=== PATIENT | female | born 1965 | race Caucasian/White ===

== ENCOUNTER 2019-12-13 09:37 | Outpatient (CLI) | payer BC, SELFPAY ==
--- NOTE | ~2019-12-13 | MM_ITS ---
EXAMINATION: MM screening azul BI w logan HISTORY: Screening mammogram TECHNIQUE: Craniocaudal and mediolateral oblique 3-D tomosynthesis images were obtained and synthetic 2-D images were generated. Bilateral rotated lateral cc views. ......CAD analysis was submitted and interpreted. COMPARISON: 04/14/2016, 03/25/2012 bilateral digital screening mammogram examinations BREAST PARENCHYMAL COMPOSITION: There are scattered areas of fibroglandular density. FINDINGS: Stable mild fibroglandular asymmetry. Occasional benign calcifications. There is no evidenc e of suspicious mass, calcification, or architectural distortion to suggest malignancy in either [address] There has been no suspicious interval change. IMPRESSION: 1. No mammographic evidence of malignancy. 2. Recommend routine screening mammography in one year. BI-RADS Category 2: Benign finding(s). Reviewed, dictated and finalized at location A.
== END 2019-12-13 09:38 | disposition home or self-care (01) ==
LOC: ANHIMG 09:41
PROVIDERS: PCP Family Medicine
DX: Z12.31 Encounter for screening mammogram for malignant neoplasm of breast (principal)
CPT/HCPCS: 77063; 77067

== ENCOUNTER 2020-04-20 09:56 | Outpatient (CLI) | payer BC, SELFPAY ==
[2020-04-20 10:13] LABS: Basophils Percent Auto 0.4 % (0.2-1.2); Eosinophils Absolute Auto 0.1 K/mm3 (0-0.3); Eosinophils Percent Auto 1.6 % (0-4.4); Hemoglobin 14.1 g/dL (12.0-15.0); Immature Granulocyte Absolute 0.01 K/mm3 (0.00-0.031); Immature Granulocyte Percent A 0.2 % (0-0.5); Lymphocytes Percent Auto 47.2 % (18.3-44.2); Mean Corpuscular HGB Conc 34.4 g/dl (32-36); Mean Corpuscular Hemoglobin 30.5 pg (26-34); Mean Corpuscular Volume 88.6 fl (80-100); Mean Platelet Volume 10.3 fl (7.4-10.4); Monocytes Absolute Auto 0.2 K/mm3 (0.1-0.6); Monocytes Percent Auto 4.3 % (2.6-8.5); Neutrophils Absolute Auto 2.4 K/mm3 (1.3-6.7); Neutrophils Percent Auto 46.3 % (45.5-73.1); Platelet Count Result 238 k/mm3 (150-375); Red Blood Count 4.63 M/mm3 (4.2-5.4); Red Cell Distribution Width 11.9 % (11.5-14.5); White Blood Count 5.1 K/mm3 (4.5-10.0)
[2020-04-20 10:16] LABS: Add Urine Microscopic? YES; Appearance Urine Clear (Clear); Bacteria Urine Trace /hpf; Bilirubin Urine Negative (Negative); Blood Urine Negative (Negative); Color Urine Yellow (Yellow); Glucose Urine UA Negative (Negative); Ketones Urine Negative (Negative); Leukocyte Esterase Ur Trace LEU/UL (NEGATIVE); Mucus Urine Rare /lpf; Nitrate Urine Negative (Negative); Protein Urine Negative (Negative); Specific Grav Ur 1.014 (1.001-1.035); Squamous Epithelial Cell Urine Occasional /hpf (Few); Urobilinogen Urine Negative mg/dL (<2.0); WBC Urine 0-3 /hpf (0-3)
[2020-04-20 10:28] LABS: Alanine Aminotransferase 33 U/L (4-35); Albumin Level 4.2 g/dL (3.5-5.1); Alkaline Phosphatase 92 U/L (38-126); Anion Gap 7 mmol/L (8-16); Aspartate Amino Transferase 24 U/L (14-36); Bilirubin,Total 0.6 mg/dL (0.2-1.3); Blood Urea Nitrogen 15 mg/dL (7-17); Calcium 9.2 mg/dL (8.4-10.2); Carbon Dioxide 28 mmol/L (22-30); Chloride 101 mmol/L (98-107); Cholesterol 244 mg/dL (0-200); Estimated Glomerular Filt Rate > 60; Glucose 132 mg/dL (65-105); HDL Direct 60 mg/dL; Potassium 3.9 mmol/L (3.4-5.0); Sodium 136 mmol/L (137-145); Triglycerides 140 mg/dL (<150)
[2020-04-20 10:40] LABS: LDL Cholesterol Direct 137 mg/dL
[2020-04-20 10:50] LABS: Hemoglobin A1C 5.7 % (<5.7)
[2020-04-22 18:11] LABS: Hepatitis C RNA, Quant PCR <15 IU/mL
== END 2020-04-20 09:57 | disposition home or self-care (01) ==
PROVIDERS: PCP Family Medicine; Visit Provider Physician Assistant
DX: R76.8 Other specified abnormal immunological findings in serum (principal); R42 Dizziness and giddiness; K76.0 Fatty (change of) liver, not elsewhere classified; R73.01 Impaired fasting glucose; M85.89 Other specified disorders of bone density and structure, multiple sites
CPT/HCPCS: 36415; 80053; 80061; 81001; 83036; 84443; 85025; 87086; 87088; 87522

== ENCOUNTER → 2020-05-15 00:17 | Outpatient (CLI) | payer BC, SELFPAY ==
[2020-05-15 21:18] LABS: SARS-CoV-2 RNA PCR Negative
== END ==
PROVIDERS: PCP Family Medicine; Visit Provider Internal Medicine Gastroenterology
DX: Z01.812 Encounter for preprocedural laboratory examination (principal); Z20.822 Contact with and (suspected) exposure to COVID-19
CPT/HCPCS: C9803; U0003; U0005

== ENCOUNTER 2020-05-18 02:08 | Day surgery (SDC) | payer BC, SELFPAY ==
[2020-05-08 11:06] VITALS: BMI 29.3
[2020-05-18 07:11] VITALS: BP 118/86; PULSE 77; RESP 18; TEMP 36; O2SAT 100
[2020-05-18] MEDS: LACTATED RINGERS 1,000 ML 150 ML IV CONT (07:25)
[2020-05-18 07:27] LABS: Glucose Point of Care 129 (65-105)
[2020-05-18] MEDS: ONDANSETRON INJ 4 MG/2 ML VIAL IV PUSH (08:28)
--- NOTE | 2020-05-18 08:32 | WPDANESEPPF ---
Anes - Initial Pre Proc Eval Procedure: Operation Date: 05/18/20 08:30 Proposed Procedures p Screening Colonoscopy - Suhail Ny MD Date/Time: 05/18/20 08:32 Surgeon: Suhail Ny MD Pre Op Diagnosis: neoplasm screening Patient Data Age: 54 Gender: F Height: 5 ft 5 in Weight: 76.1 kg Last Vital Signs Temp 36.0 C L 05/18/20 07:11 Pulse 77 05/18/20 07:11 Resp 18 05/18/20 07:11 BP 118/86 05/18/20 07:11 Pulse Ox 100 05/18/20 07:11 Allergies Allergy/AdvReac Type Severity Reaction Status Date / Time No Known Allergies Allergy Verified 05/18/20 07:10 Home Medications Medication Instructions Recorded Confirmed Type metformin 500 mg tablet 500 mg PO DAILY 04/06/19 05/18/20 History hydrochlorothiazide 12.5 mg tablet 12.5 mg PO DAILY #90 tablet 01/16/20 05/18/20 Rx venlafaxine 150 mg 150 mg PO DAILY #30 cap 02/15/20 05/18/20 Rx capsule,extended release 24 hr potassium chloride 10 mEq See Rx Instructions .ROUTE 04/16/20 05/18/20 Rx capsule,extended release .COMPLEX #90 cap sodium,potassium,mag sulfates 17.5 See Rx Instructions PO .COMPLEX 05/07/20 05/18/20 Rx gram-3.13 gram-1.6 gram oral soln #354 ml Laboratory Tests 05/18/20 07:24 POC Capillary Glucose 129 mg/dl H mg/dl (65-105) Patient hx anesthesia problems: none Family hx anesthesia problems: none PMFSH Family History Family History Father Family history of elevated blood lipids Family history of diabetes mellitus in first degree relative Hypertension Diabetes mellitus Mother Family history of elevated blood lipids Hypertension Family history of diabetes mellitus in first degree relative Diabetes mellitus Sibling Family history of diabetes mellitus in first degree relative Hypertension Family history of elevated blood lipids Diabetes mellitus Grandparent Diabetes mellitus Social History Social History Smoking status: Never smoker Second hand tobacco smoke exposure: No Smoking end date: 03/30/01 Alcohol intake: never Substance use: never Substance use type: does not use Living arrangements: with family Spiritual care concerns: No Anes - Eval Final PreProcedure Day of Procedure 05/18/20 08:32 Patient weight: overweight Heart: regular rate and rhythm Lungs: clear to auscultation Airway: Mallampati scale class II Neurological: alert and oriented Last oral intake: >/= 8 hours ASA classification: II Emergent: no Anesthetic plan: proceed Anesthesia type and monitoring: general GIVS and standard monitoring Informed Consent: The patient's anesthetic plan and its attendant risks and benefits were discussed with the patient/family/POA. Questions were solicited and answers provided to the satisfaction of the patient/family/POA.
--- NOTE | 2020-05-18 08:48 | PM.HPGS ---
History of Present Illness History of Present Illness Consent: Risks, benefits, and alternatives have been discussed and questions answered. Patient agrees to proceed with procedure. Chief complaint: neoplasm screening Narrative: Geeta Peck is a 54 year old female with colon polyps 7 years ago. Review of Systems Constitutional: Constitutional: Denies headache(s) and Denies weakness Eyes: Eyes: Denies blurry vision ENT: Reports Normal hearing present, Denies headache(s) and Denies neck pain Cardiovascular: Cardiovascular: Denies chest pain and Denies dyspnea Respiratory: Respiratory: Denies dyspnea Gastrointestinal: Gastrointestinal: Reports no additional gastrointestinal complaints Genitourinary: Genitourinary: Denies dysuria Musculoskeletal: Musculoskeletal: Denies neck pain Integumentary/Breasts: Skin/Breast: Denies dry skin Neurologic: Reports Normal hearing present, Denies headache(s) and Denies weakness Psychiatric: Psychiatric: Denies anxiety Endocrine: Endocrine: Denies change in body appearance Hematologic/Lymphatic: Hematologic/Lymphatic: Denies easy bleeding Allergic/Immunologic: Allergic/Immunologic: Denies urticaria PMFSH Family History Family History Father Family history of elevated blood lipids Family history of diabetes mellitus in first degree relative Hypertension Diabetes mellitus Mother Family history of elevated blood lipids Hypertension Family history of diabetes mellitus in first degree relative Diabetes mellitus Sibling Family history of diabetes mellitus in first degree relative Hypertension Family history of elevated blood lipids Diabetes mellitus Grandparent Diabetes mellitus Social History Social History Smoking status: Never smoker Second hand tobacco smoke exposure: No Smoking end date: 03/30/01 Alcohol intake: never Substance use: never Substance use type: does not use Living arrangements: with family Spiritual care concerns: No Meds Home Medications and Allergies Home Medications Medication Instructions Recorded Confirmed Type metformin 500 mg tablet 500 mg PO DAILY 04/06/19 05/18/20 History hydrochlorothiazide 12.5 mg tablet 12.5 mg PO DAILY #90 tablet 01/16/20 05/18/20 Rx venlafaxine 150 mg 150 mg PO DAILY #30 cap 02/15/20 05/18/20 Rx capsule,extended release 24 hr potassium chloride 10 mEq See Rx Instructions .ROUTE 04/16/20 05/18/20 Rx capsule,extended release .COMPLEX #90 cap sodium,potassium,mag sulfates 17.5 See Rx Instructions PO .COMPLEX 05/07/20 05/18/20 Rx gram-3.13 gram-1.6 gram oral soln #354 ml Allergies Allergy/AdvReac Type Severity Reaction Status Date / Time No Known Allergies Allergy Verified 05/18/20 07:10 Vital Signs Vital Signs - 24 hr 05/18/20 07:11 Temperature 96.8 F L Pulse Rate 77 Respiratory Rate 18 Blood Pressure 118/86 Pulse Oximetry 100 Exam Const: General: comfortable and no acute distress HENMT: General nose exam: Normal nares present Eyes: General: appearance normal, both eyes and all related structures Neck: Neck: no JVD Resp: Auscultation: clear to auscultation bilaterally Cardio: Rate: regular rate Rhythm: regular rhythm GI: Inspection: non-distended GI Palp: Yes Soft to palpation Skin: General skin exam: normal color Neuro: General: gait normal Speech: normal speech Extrem: General: normal to inspection Psych: Mental Status: mental status grossly normal Assessment and Plan Assessment and plan (1) Encounter for screening colonoscopy: Code(s): Z12.11 - Encounter for screening for malignant neoplasm of colon Status: Acute Assessment and Plan: proceed with colonoscopy
[2020-05-18 09:27] VITALS: BP 118/73; PULSE 69; RESP 13; O2SAT 100
[2020-05-18 09:37] VITALS: BP 104/71; PULSE 66; RESP 18; O2SAT 100
[2020-05-18 09:47] VITALS: BP 117/75; PULSE 64; RESP 14; O2SAT 100
== END 2020-05-18 10:00 | disposition home or self-care (01) ==
PROVIDERS: PCP Family Medicine; Visit Provider Internal Medicine Gastroenterology
PROC: 0DJD8ZZ Inspection of Lower Intestinal Tract, Via Natural or Artificial Opening Endoscopic (ICD-10-PCS; CPT 45378; principal; 2020-05-18 08:30)
DX: Z12.11 Encounter for screening for malignant neoplasm of colon (principal); K63.5 Polyp of colon; Z86.010 Personal history of colon polyps; Z83.3 Family history of diabetes mellitus
CPT/HCPCS: 45380; 82948; 88305; J1885; J2405; J2704; J7120

== ENCOUNTER 2022-01-15 09:02 | Outpatient (CLI) | payer BC, SELFPAY ==
[2022-01-15 09:47] LABS: Basophils Percent Auto 0.5 % (0.2-1.2); Eosinophils Absolute Auto 0.2 K/mm3 (0-0.3); Eosinophils Percent Auto 2.5 % (0-4.4); Hematocrit 42.9 % (37.0-47.0); Hemoglobin 13.9 g/dL (12.0-15.0); Immature Granulocyte Absolute 0.01 K/mm3 (0.00-0.031); Immature Granulocyte Percent A 0.2 % (0-0.5); Lymphocytes Absolute Auto 3.46 K/mm3 (0.9-3.2); Lymphocytes Percent Auto 54.7 % (18.3-44.2); Mean Corpuscular HGB Conc 32.4 g/dl (32-36); Mean Corpuscular Hemoglobin 28.8 pg (26-34); Mean Corpuscular Volume 88.8 fl (80-100); Monocytes Absolute Auto 0.4 K/mm3 (0.1-0.6); Monocytes Percent Auto 6.3 % (2.6-8.5); Neutrophils Absolute Auto 2.3 K/mm3 (1.3-6.7); Neutrophils Percent Auto 35.8 % (45.5-73.1); Platelet Count Result 278 k/mm3 (150-375); Red Blood Count 4.83 M/mm3 (4.2-5.4); Red Cell Distribution Width 13.3 % (11.5-14.5); White Blood Count 6.3 K/mm3 (4.5-10.0)
[2022-01-15 09:55] LABS: Add Urine Microscopic? YES; Appearance Urine Cloudy (Clear); Bilirubin Urine Negative (Negative); Blood Urine Negative (Negative); Color Urine Amber (Yellow); Glucose Urine UA Negative (Negative); Ketones Urine Trace mg/dL (Negative); Leukocyte Esterase Ur Trace LEU/UL (NEGATIVE); Nitrate Urine Negative (Negative); Protein Urine Negative (Negative); RBC Urine 0-2 /hpf (0-2); Specific Grav Ur 1.021 (1.001-1.035); Squamous Epithelial Cell Urine Rare /hpf (Few); WBC Urine 0-3 /hpf (0-3)
[2022-01-15 10:01] LABS: Alanine Aminotransferase 55 U/L (6-35); Albumin Level 4.6 g/dL (3.5-5.1); Alkaline Phosphatase 117 U/L (38-126); Anion Gap 13 mmol/L (8-16); Aspartate Amino Transferase 33 U/L (14-36); Bilirubin,Total 0.6 mg/dL (0.2-1.3); Blood Urea Nitrogen 14 mg/dL (7-17); Calcium 8.8 mg/dL (8.4-10.2); Carbon Dioxide 26 mmol/L (22-30); Chloride 100 mmol/L (98-107); Cholesterol 218 mg/dL (0-200); Estimated Glomerular Filt Rate > 60; Glucose 128 mg/dL (65-110); HDL Direct 47 mg/dL; Potassium 3.9 mmol/L (3.4-5.0); Sodium 139 mmol/L (137-145); Triglycerides 152 mg/dL (<150)
[2022-01-15 10:07] LABS: Hemoglobin A1C 6.5 % (<5.7)
[2022-01-15 10:13] LABS: LDL Cholesterol Direct 125 mg/dL
[2022-01-15 10:28] LABS: Thyroid Stimulating Hormone 0.825 uIU/mL (0.465-4.680)
== END 2022-01-15 09:03 | disposition home or self-care (01) ==
LOC: ANHLAB 09:04
PROVIDERS: PCP Family Medicine; Visit Provider Family Medicine
DX: R73.01 Impaired fasting glucose (principal); R53.83 Other fatigue; E78.5 Hyperlipidemia, unspecified
CPT/HCPCS: 36415; 80053; 80061; 81001; 83036; 84443; 85025

== ENCOUNTER 2022-05-27 14:57 | Emergency (ER) | payer BC, SELFPAY ==
[2022-05-27 15:22] VITALS: BP 112/64; PULSE 69; RESP 14; TEMP 36.7; O2SAT 100
--- NOTE | 2022-05-27 15:26 | ECG_ITS ---
Measurements Intervals [place] Rate: 67 P: 60 NV: 173 QRS: 23 QRSD: 84 T: 43 QT: 411 QTc: 435 Interpretive Statements SINUS RHYTHM BASELINE ARTIFACT- I, II, AVR NORMAL ECG COMPARED TO ECG 10/16/2018 18:37:20 NO SIGNIFICANT CHANGES Electronically Signed On 05-28-2022 13:13:00 [employer] by Sherwin Quigley D.O.
[2022-05-27 15:44] LABS: Basophils Percent Auto 0.4 % (0.2-1.2); Eosinophils Absolute Auto 0.1 K/mm3 (0-0.3); Eosinophils Percent Auto 0.4 % (0-4.4); Hematocrit 47.4 % (37.0-47.0); Hemoglobin 15.7 g/dL (12.0-15.0); Immature Granulocyte Absolute 0.01 K/mm3 (0.00-0.031); Immature Granulocyte Percent A 0.1 % (0-0.5); Lymphocytes Absolute Auto 1.11 K/mm3 (0.9-3.2); Lymphocytes Percent Auto 9.7 % (18.3-44.2); Mean Corpuscular HGB Conc 33.1 g/dl (32-36); Mean Corpuscular Hemoglobin 29.6 pg (26-34); Mean Corpuscular Volume 89.3 fl (80-100); Mean Platelet Volume 10.2 fl (7.4-10.4); Monocytes Absolute Auto 0.4 K/mm3 (0.1-0.6); Monocytes Percent Auto 3.6 % (2.6-8.5); Neutrophils Absolute Auto 9.8 K/mm3 (1.3-6.7); Neutrophils Percent Auto 85.8 % (45.5-73.1); Platelet Count Result 253 k/mm3 (150-375); Red Blood Count 5.31 M/mm3 (4.2-5.4); White Blood Count 11.4 K/mm3 (4.5-10.0)
[2022-05-27 15:52] LABS: Alanine Aminotransferase 48 U/L (6-35); Albumin Level 4.6 g/dL (3.5-5.1); Alkaline Phosphatase 119 U/L (38-126); Anion Gap 9 mmol/L (8-16); Aspartate Amino Transferase 29 U/L (14-36); Bilirubin,Total 0.8 mg/dL (0.2-1.3); Blood Urea Nitrogen 13 mg/dL (7-17); Calcium 8.7 mg/dL (8.4-10.2); Carbon Dioxide 27 mmol/L (22-30); Chloride 104 mmol/L (98-107); Estimated CRCL calculation 107 ml/min; Estimated Glomerular Filt Rate > 60; Glucose 147 mg/dL (65-110); Potassium 3.6 mmol/L (3.4-5.0); Sodium 140 mmol/L (137-145)
--- NOTE | 2022-05-27 18:15 | PC.NURSE ---
Patient notified triage RNs that she was feeling much better and no longer wanted to wait to be seen by a provider. Patient had received IV Zofran en route by EMS and reported that her nausea and resolved. PIV removed and pressure dressing applied. Patient encouraged to stay but she declined.
== END 2022-05-27 18:15 | disposition left against medical advice (07) ==
LOC: ANHED 19:41
PROVIDERS: Emergency Provider Emergency Medicine; PCP Family Medicine
DX: R11.0 Nausea (principal); Z53.21 Procedure and treatment not carried out due to patient leaving prior to being seen by health care provider
CPT/HCPCS: 36415; 80053; 85025; 93005; 99199

== ENCOUNTER 2022-06-03 09:07 | Outpatient (CLI) | payer BC, SELFPAY ==
[2022-06-03 09:34] LABS: Alanine Aminotransferase 47 U/L (6-35); Albumin Level 4.4 g/dL (3.5-5.1); Alkaline Phosphatase 90 U/L (38-126); Anion Gap 7 mmol/L (8-16); Aspartate Amino Transferase 32 U/L (14-36); Bilirubin,Total 0.6 mg/dL (0.2-1.3); Blood Urea Nitrogen 12 mg/dL (7-17); Calcium 8.5 mg/dL (8.4-10.2); Carbon Dioxide 30 mmol/L (22-30); Chloride 103 mmol/L (98-107); Cholesterol 177 mg/dL (0-200); Estimated Glomerular Filt Rate > 60; Glucose 126 mg/dL (65-110); HDL Direct 43 mg/dL; Hematocrit 40.4 % (37.0-47.0); Hemoglobin 13.6 g/dL (12.0-15.0); Mean Corpuscular HGB Conc 33.7 g/dl (32-36); Mean Corpuscular Hemoglobin 29.1 pg (26-34); Mean Corpuscular Volume 86.3 fl (80-100); Mean Platelet Volume 10.1 fl (7.4-10.4); Platelet Count Result 267 k/mm3 (150-375); Potassium 3.8 mmol/L (3.4-5.0); Red Blood Count 4.68 M/mm3 (4.2-5.4); Red Cell Distribution Width 12.5 % (11.5-14.5); Sodium 140 mmol/L (137-145); Triglycerides 124 mg/dL (<150); White Blood Count 5.9 K/mm3 (4.5-10.0)
[2022-06-03 09:35] LABS: Hemoglobin A1C 6.2 % (<5.7)
[2022-06-03 09:45] LABS: LDL Cholesterol Direct 95 mg/dL
[2022-06-03 09:56] LABS: Appearance Urine Cloudy (Clear); Bacteria Urine None Seen /hpf; Bilirubin Urine Negative (Negative); Blood Urine Negative (Negative); Color Urine Yellow (Yellow); Glucose Urine UA Negative (Negative); Ketones Urine Negative (Negative); Leukocyte Esterase Ur 1+ LEU/UL (NEGATIVE); Need Manual Microscopic Reviewed; Nitrate Urine Negative (Negative); Non Pathogenic Casts 0-2; Protein Urine Negative (Negative); RBC Urine 0-2 /hpf (0-2); Specific Grav Ur 1.018 (1.001-1.035); Squamous Epithelial Cell Urine Occasional /hpf (Few); WBC Urine 0-5 /hpf (0-3); pH Urine 7.5 (5.0-9.0)
[2022-06-03 10:03] LABS: Thyroid Stimulating Hormone 0.783 uIU/mL (0.465-4.680)
[2022-06-03 10:07] LABS: Add Urine Microscopic? YES
== END 2022-06-03 09:08 | disposition home or self-care (01) ==
LOC: ANHLAB 09:08
PROVIDERS: PCP Family Medicine; Visit Provider Family Medicine
DX: R73.01 Impaired fasting glucose (principal); K76.0 Fatty (change of) liver, not elsewhere classified; E78.5 Hyperlipidemia, unspecified
CPT/HCPCS: 36415; 80053; 80061; 81001; 83036; 84443; 85027

== ENCOUNTER 2022-07-02 14:08 | Outpatient (CLI) | payer BC, SELFPAY ==
--- NOTE | ~2022-07-02 | MM_ITS ---
EXAMINATION: MM screening azul BI w logan HISTORY: Screening mammogram TECHNIQUE: Craniocaudal and mediolateral oblique 3-D tomosynthesis images were obtained and synthetic 2-D images were generated. Bilateral rotated lateral CC views. CAD analysis was submitted and interp reted. COMPARISON: 12/13/2019, 04/14/2016 lateral screening mammogram examinations.... BREAST PARENCHYMAL COMPOSITION: There are scattered areas of fibroglandular density. FINDINGS: There is no evidence of suspicious mass, calcification, or architectural distortion to sugg est malignancy in either breast. There has been no suspicious interval change. IMPRESSION: 1. No mammographic evidence of malignancy. 2. Recommend routine screening mammography in one year. BI-RADS Category 1: Negative Reviewed, dictated and finalized at location A.
== END 2022-07-02 14:09 | disposition home or self-care (01) ==
LOC: ANHIMG 14:09
PROVIDERS: PCP Family Medicine; Visit Provider Family Medicine
DX: Z12.31 Encounter for screening mammogram for malignant neoplasm of breast (principal)
CPT/HCPCS: 77063; 77067

== ENCOUNTER 2022-12-24 09:51 | Emergency (ER) | payer BC, SELFPAY ==
[2022-12-24 10:00] VITALS: BP 111/63; PULSE 58; RESP 16; TEMP 37.2; O2SAT 99
--- NOTE | 2022-12-24 10:35 | ED.URI ---
HPI - URI/Sore Throat General Chief Complaint: Upper Respiratory Infection Stated Complaint: Sinus Time Seen by Provider: 12/24/22 10:35 Source: patient Mode of arrival: ambulatory Limitations: no limitations History of Present Illness HPI Narrative: 56-year-old female presents with complaint of cough and chest congestion for 2 weeks. Reports shortness of breath with activities for the past week. Cough is worse at night and in the morning and also when working out. Patient states that she is very active and does not feel like she can do her normal activities. Afebrile. All systems reviewed and negative except as noted above. Related Data Allergies Allergy/AdvReac Type Severity Reaction Status Date / Time nitrofurantoin AdvReac Intermediate Fainting Verified 12/24/22 10:24 Review of Systems Review of Systems: CONSTITUTIONAL: Denies fever, chills, or sweats. EYES: Denies visual changes, redness, or discharge. ENT: Denies rhinorrhea, congestion, sore throat, or otalgia. CARDIOVASCULAR: Denies chest pain, palpitations, or edema. RESPIRATORY: Reports cough and chest congestion, dyspnea with exertion. GASTROINTESTINAL: Denies abdominal pain, nausea, vomiting, or diarrhea. GENITOURINARY: Denies dysuria or hematuria. SKIN: Denies rash or itching. MUSCULOSKELETAL: Denies back pain, joint pain, or myalgia. NEUROLOGIC: Denies headache, numbness, or weakness. PSYCHIATRIC: Denies anxiety or depression. All other systems reviewed are negative, except as documented in HPI. [facility] Past Medical History Medical History (Updated 12/24/22 @ 10:45 by Dorys Coker NP) Fatty liver Hepatitis C antibody positive in blood IFG (impaired fasting glucose) Menieres disease Vertigo Family History Family History Father Family history of elevated blood lipids Family history of diabetes mellitus in first degree relative Hypertension Diabetes mellitus Mother Family history of elevated blood lipids Hypertension Family history of diabetes mellitus in first degree relative Diabetes mellitus Sibling Family history of diabetes mellitus in first degree relative Hypertension Family history of elevated blood lipids Diabetes mellitus Grandparent Diabetes mellitus Social History Social History Smoking status: Former smoker Tobacco type: cigarettes Second hand tobacco smoke exposure: No Smoking end date: 03/30/01 Alcohol intake: never Alcohol use details: social drinker Substance use: never Substance use type: does not use Living arrangements: with family Occupation/Education: occupation Gender identity (if verbalized by the patient): Female Sexual Orientation (if Verbalized by the Patient): Straight or Heterosexual Spiritual care concerns: No Comments At time of signature, agree with nursing past medical, surgical, social and family history. There is no relevant family history pertinent to the presenting complaint. Exam Narrative: GENERAL: This is a well-nourished, well-developed patient, in no apparent distress. HEAD: normocephalic, atraumatic. EYES: PERRL. Sclera clear/white. Vision is grossly intact. EARS: External ears normal, auditory canals clear and without drainage, TMs normal without perforation. Hearing grossly intact. NOSE: External nose normal with no obvious nasal discharge, nares without redness, no rhinorrhea. THROAT: Mucous membranes moist, posterior pharynx clear. NECK: Neck supple, non-tender without lymphadenopathy, masses or thyromegaly. CARDIOVASCULAR: Regular rate and rhythm without murmurs, gallops, or rubs. RESPIRATORY: decreased lung sounds to bilateral lower lung nunn. No wheezes, rales, or rhonchi. SKIN: warm, Dry, intact with no suspicious lesions or rash, good texture and turgor. NEURO: awake, alert, and oriented to person, place and t
== END 2022-12-24 10:48 | disposition home or self-care (01) ==
PROVIDERS: Emergency Provider Nurse Practitioner Family; PCP Family Medicine
DX: J20.9 Acute bronchitis, unspecified (principal); Z87.891 Personal history of nicotine dependence
CPT/HCPCS: 99213; G0463

== ENCOUNTER 2023-03-06 16:48 | Emergency (ER) | payer BC, SELFPAY ==
[2023-03-06 17:20] VITALS: BP 125/67; PULSE 71; RESP 16; TEMP 36.8; O2SAT 99
--- NOTE | 2023-03-06 21:50 | ED.GENADULT ---
HPI - General Adult General Chief complaint: Eye Problems Stated complaint: foreign object in eye Time Seen by Provider: 03/06/23 20:46 History of Present Illness HPI narrative: This is a 57-year-old female presenting ED with a chief complaint of foreign body in her eye x2 days. Patient says she has had irritation and a floater in her vision for 2 days. She thought she might have had something in [place]. Earlier today she flushed her eye out with and eye-flushing kit with no relief. No visual changes. No loss of visual nunn. No significant pain. Patient has a history of Lasix, cataract surgery and dry eyes. Related Data Allergies Allergy/AdvReac Type Severity Reaction Status Date / Time nitrofurantoin AdvReac Intermediate Fainting Verified 02/24/23 10:35 PMFSH Past Medical History Medical History Fatty liver Hepatitis C antibody positive in blood IFG (impaired fasting glucose) Menieres disease Vertigo Surgical History Surgical History History of hysteroscopy S/P dilation and curettage [place] teeth removed Family History Family History Father Family history of elevated blood lipids Family history of diabetes mellitus in first degree relative Hypertension Diabetes mellitus Mother Family history of elevated blood lipids Hypertension Family history of diabetes mellitus in first degree relative Diabetes mellitus Sibling Family history of diabetes mellitus in first degree relative Hypertension Family history of elevated blood lipids Diabetes mellitus Grandparent Diabetes mellitus Social History Social History Smoking status: Former smoker Tobacco type: cigarettes Second hand tobacco smoke exposure: No Smoking end date: 03/30/01 Alcohol intake: never Alcohol use details: social drinker Substance use: never Substance use type: does not use Living arrangements: with family Occupation/Education: occupation Gender identity (if verbalized by the patient): Female Sexual Orientation (if Verbalized by the Patient): Straight or Heterosexual Spiritual care concerns: No Exam Narrative: APPEARANCE: No apparent distress. Head: atraumatic. NOSE: Atraumatic NECK: Trachea midline RESPIRATORY: No increased rate of breathing CARDIOVASCULAR: RRR, ABDOMINAL: Non-distended MUSCULOSKELETAl: No obvious deformities NEURO: Alert. Moving 4/4 extremities SKIN:: Warm, dry. Normal color PSYCHIATRIC: Normal affect Eye exam: IOP 13 bilaterally, fluorescein stain negative for foreign body or abrasion. No Ana Paula sign. Visual acuity 20/25 bilaterally, Cornea and anterior chamber normal on exam. Course Vital Signs Vital signs: Vital Signs Temperature 98.3 F 03/06/23 17:20 Pulse Rate 71 03/06/23 17:20 Respiratory Rate 16 03/06/23 17:20 Blood Pressure 125/67 03/06/23 17:20 Pulse Oximetry 99 03/06/23 17:20 Oxygen Delivery Room Air 03/06/23 17:20 Temperature 98.3 F 03/06/23 17:20 Pulse Rate 71 03/06/23 17:20 Respiratory Rate 16 03/06/23 17:20 Blood Pressure 125/67 03/06/23 17:20 Pulse Oximetry 99 03/06/23 17:20 Oxygen Delivery Room Air 03/06/23 17:20 Medical Decision Making [facility] Narrative Medical decision making narrative: -Course: 57-year-old female presenting with foreign body sensation. On my exam there is no evidence of abrasion/foreign bodies on the cornea/conjunctiva. No visual field deficits that would suggest retinal detachment. Patient's symptoms did improve with tetracaine. She will be discharged on Ocuflox in case there is an occult abrasion. Patient will be discharged with close Ophthalmology follow-up and return precautions. -DDX includes but is not limited to: Foreign body, corneal abrasion, dry eyes
== END 2023-03-06 22:07 | disposition home or self-care (01) ==
PROVIDERS: Emergency Provider Emergency Medicine; PCP Family Medicine
DX: H57.89 Other specified disorders of eye and adnexa (principal); Z98.49 Cataract extraction status, unspecified eye; Z87.891 Personal history of nicotine dependence
CPT/HCPCS: 99283

== ENCOUNTER 2023-09-15 11:32 | Outpatient (CLI) | payer BC, SELFPAY ==
[2023-09-15 11:57] LABS: Hematocrit 42.9 % (37.0-47.0); Hemoglobin 13.9 g/dL (12.0-15.0); Mean Corpuscular HGB Conc 32.4 g/dl (32-36); Mean Corpuscular Hemoglobin 29.2 pg (26-34); Mean Corpuscular Volume 90.1 fl (80-100); Mean Platelet Volume 10.6 fl (7.4-10.4); Platelet Count Result 228 k/mm3 (150-375); Red Blood Count 4.76 M/mm3 (4.2-5.4); Red Cell Distribution Width 12.1 % (11.5-14.5); White Blood Count 6.3 K/mm3 (4.5-10.0)
[2023-09-15 11:59] LABS: Appearance Urine Clear (Clear); Bilirubin Urine Negative (Negative); Blood Urine Negative (Negative); Color Urine Yellow (Yellow); Glucose Urine UA Negative (Negative); Ketones Urine Negative (Negative); Leukocyte Esterase Ur Negative LEU/UL (Negative); Nitrate Urine Negative (Negative); Protein Urine Negative (Negative); Specific Grav Ur 1.012 (1.001-1.035); Urobilinogen Urine 0.2 mg/dL (<2.0)
[2023-09-15 12:02] LABS: Add Urine Microscopic? NO
[2023-09-15 12:12] LABS: Alanine Aminotransferase 37 U/L (6-35); Albumin Level 4.4 g/dL (3.5-5.1); Alkaline Phosphatase 114 U/L (38-126); Anion Gap 8 mmol/L (4-12); Aspartate Amino Transferase 25 U/L (14-36); Bilirubin,Total 0.7 mg/dL (0.2-1.3); Blood Urea Nitrogen 13 mg/dL (7-17); Carbon Dioxide 27 mmol/L (22-30); Chloride 104 mmol/L (98-107); Cholesterol 217 mg/dL (0-200); Estimated Glomerular Filt Rate > 60; Glucose 109 mg/dL (65-110); HDL Direct 60 mg/dL; Sodium 139 mmol/L (137-145); Triglycerides 129 mg/dL (<150)
[2023-09-15 12:23] LABS: LDL Cholesterol Direct 118 mg/dL
== END 2023-09-15 11:33 | disposition home or self-care (01) ==
LOC: ANHLAB 11:33
PROVIDERS: PCP Family Medicine; Visit Provider Family Medicine
DX: E78.5 Hyperlipidemia, unspecified (principal); K76.0 Fatty (change of) liver, not elsewhere classified; R73.01 Impaired fasting glucose; Z00.00 Encounter for general adult medical examination without abnormal findings
CPT/HCPCS: 36415; 80053; 80061; 81003; 83036; 84443; 85027

== ENCOUNTER 2023-09-22 01:33 | Emergency (ER) | payer BC, SELFPAY ==
[2023-09-22] VITALS (9 sets, daily range): BP systolic 115–125; BP diastolic 64–97; PULSE 55–70; RESP 12–16; TEMP 36.6; O2SAT 97–100
--- NOTE | ~2023-09-22 | CT_ITS ---
Non-contrast Head CT History: Syncope Technique: Axial non-contrast imaging of the brain was performed. Dose reduction technique was used on this scan by utilizing automated exposure control and iterative reconstruction technique. The dose -length product (DLP) was 605.33 mGy-cm. Findings: There is no evidence of intracranial hemorrhage, mass lesion, or acute infarct. Brain par enchyma appears normal. The ventricles and subarachnoid spaces are normal in size. The calvarium ap pears normal. The visualized paranasal sinuses and mastoid air cells are clear. Impression: No significant abnormality seen. Reviewed, dictated and finalized at location . Impression: No significant abnormality seen.
--- NOTE | ~2023-09-22 | CT_ITS ---
Noncontrast CT scan of the cervical spine Technique: Multiple contiguous axial [address] images of the cervical spine were obtained and rec onstructed in 2D sagittal and coronal planes on the acquisition scanner. Dose reduction technique was used on this scan by utilizing automated exposure control, adjustment of the mA and/or kV according to patient size. The dose-length product (DLP) was 330.46 mGy-cm. Clinical History: Pain Findings: No acute fracture. There is 3 mm anterolisthesis of C4 over C5. There is mild reversal norm al cervical lordosis. There is advanced degenerative disc narrowing at C5-C6. There is moderate to ad vanced degenerative change at the articulation of the odontoid process with the anterior arch of C1. There is scattered facet joint degenerative changes, worst at C4-C5. Probable mild bilateral neural f oraminal narrowing at C5-C6. No prevertebral soft tissue swelling. Impression: No acute fracture. 3 mm anterolisthesis of C4 over C5. Degenerative change, as above. Reviewed, dictated and finalized at [facility]. Impression: No acute fracture. 3 mm anterolisthesis of C4 over C5. Degenerative change, as above.
--- NOTE | 2023-09-22 01:40 | ECG_ITS ---
Test Date: 2023-09-22 01:47:29 Measurements Intervals [place] Rate: 53 P: 46 SD: 183 QRS: 14 QRSD: 86 T: 22 QT: 440 QTc: 414 Interpretive Statements SINUS BRADYCARDIA POSSIBLE LEFT ATRIAL ENLARGEMENT [-0.1mV P WAVE IN V1/V2] LOW QRS VOLTAGE IN PRECORDIAL LEADS [QRS DEFLECTION < 1.0 mV IN CHEST LEADS] No previous ECG available for comparison Electronically Signed On 09-22-2023 13:35:20 CDT by Myles Izaguirre M.D.
[2023-09-22 02:12] LABS: Basophils Percent Auto 0.5 % (0.2-1.2); Eosinophils Absolute Auto 0.2 K/mm3 (0-0.3); Eosinophils Percent Auto 2.5 % (0-4.4); Hematocrit 37.2 % (37.0-47.0); Hemoglobin 12.5 g/dL (12.0-15.0); Immature Granulocyte Absolute 0.01 K/mm3 (0.00-0.031); Immature Granulocyte Percent A 0.1 % (0-0.5); Lymphocytes Absolute Auto 3.76 K/mm3 (0.9-3.2); Lymphocytes Percent Auto 48.9 % (18.3-44.2); Mean Corpuscular HGB Conc 33.6 g/dl (32-36); Mean Corpuscular Hemoglobin 29.8 pg (26-34); Mean Corpuscular Volume 88.8 fl (80-100); Mean Platelet Volume 10.8 fl (7.4-10.4); Monocytes Absolute Auto 0.5 K/mm3 (0.1-0.6); Monocytes Percent Auto 6.1 % (2.6-8.5); Neutrophils Absolute Auto 3.2 K/mm3 (1.3-6.7); Neutrophils Percent Auto 41.9 % (45.5-73.1); Platelet Count Result 206 k/mm3 (150-375); Red Blood Count 4.19 M/mm3 (4.2-5.4); Red Cell Distribution Width 12.2 % (11.5-14.5); White Blood Count 7.7 K/mm3 (4.5-10.0)
[2023-09-22 02:25] LABS: Alanine Aminotransferase 33 U/L (6-35); Albumin Level 3.5 g/dL (3.5-5.1); Alkaline Phosphatase 106 U/L (38-126); Anion Gap 5 mmol/L (4-12); Aspartate Amino Transferase 21 U/L (14-36); Bilirubin,Total 0.3 mg/dL (0.2-1.3); Blood Urea Nitrogen 18 mg/dL (7-17); Calcium 8.8 mg/dL (8.4-10.2); Carbon Dioxide 29 mmol/L (22-30); Chloride 106 mmol/L (98-107); Estimated CRCL calculation 102 ml/min; Estimated Glomerular Filt Rate > 60; Glucose 139 mg/dL (65-110); Potassium 3.7 mmol/L (3.4-5.0); Sodium 140 mmol/L (137-145)
--- NOTE | 2023-09-22 02:32 | ED.SYNCOPE ---
HPI - Syncope General Chief Complaint: Syncope Stated Complaint: SYNCOPAL EPISODE Time Seen by Provider: 09/22/23 02:30 Source: patient, family () and EMS Mode of arrival: EMS Limitations: no limitations History of Present Illness HPI narrative: Patient presents from home with report of a syncopal episode. Patient got up in the middle the night and felt on while and went to walk to the bathroom. she felt uncomfortable and nauseated but did not vomit (though initially reported as this in triage as well as symptoms that preceded syncope but she denies this). she took approximately 5 steps before she lost muscle tone and consciousness. she does not know if she struck her head but afterwards felt like her neck was a little tight. she denies any shortness of breath history of CHF for liver disease. She has not yet taken anything for pain. not on anticoagulation. She recently had surgery for a detached retina on Thursday at [facility] in [place]. Her medications involved the following eye drops/medications: timolol, ofloxacin, prednisolone, Polytrim in addition to her PO venlafaxine. Related Data Home Medications Medication Instructions Recorded Confirmed lorazepam 0.5 mg tablet 0.5 mg PO DAILY PRN 05/06/23 05/06/23 Allergies Allergy/AdvReac Type Severity Reaction Status Date / Time nitrofurantoin AdvReac Intermediate Fainting Verified 05/06/23 08:59 [facility] Past Medical History Medical History (Updated 09/22/23 @ 05:56 by Tammy Shaffer MD) Fatty liver Hepatitis C antibody positive in blood IFG (impaired fasting glucose) Menieres disease Vertigo Surgical History Surgical History History of detached retina repair September 18, 2023 ([facility]) History of hysteroscopy S/P dilation and curettage [place] teeth removed Family History Family History Father Family history of elevated blood lipids Family history of diabetes mellitus in first degree relative Hypertension Diabetes mellitus Mother Family history of elevated blood lipids Hypertension Family history of diabetes mellitus in first degree relative Diabetes mellitus Sibling Family history of diabetes mellitus in first degree relative Hypertension Family history of elevated blood lipids Diabetes mellitus Grandparent Diabetes mellitus Social History Social History Smoking status: Former smoker Tobacco type: cigarettes Second hand tobacco smoke exposure: No Smoking end date: 03/30/01 Alcohol intake: never Alcohol use details: social drinker Substance use: never Substance use type: does not use Living arrangements: with family Occupation/Education: occupation Gender identity (if verbalized by the patient): Female Sexual Orientation (if Verbalized by the Patient): Straight or Heterosexual Spiritual care concerns: No Exam Narrative: GENERAL: Well-appearing, well-nourished, and in no acute distress. HEAD: Normocephalic, atraumatic. EYES: Non icteric. Left eye injected (post surgical per patient) ENT: Nares clear, no rhinorrhea or epistaxis. NECK: Supple. Demonstrates flexion and extension as well as some rotational movement CHEST: Speaking in full sentences. No respiratory distress. HEART: Bradycardic rate and rhythm. . ABDOMEN: Soft, nondistended. EXTREMITIES: Normal range of motion. No edema. SKIN: Warm, dry, no rash. NEURO: No focal deficits. Alert and oriented x3. Speaks clearly without aphasia or dysarthria. PSYCH: Normal mood and affect. Course Vital Signs Vital signs: Vital Signs Temperature 97.9 F 09/22/23 01:34 Pulse Rate 55 L 09/22/23 01:34 Respiratory Rate 16 09/22/23 01:34 Blood Pressure 119/73 09/22/23 01:34 Pulse Oximetry 100 09/22/23 01:34 Oxygen Deli
[2023-09-22] MEDS: ACETAMINOPHEN 500 MG TABLET 1000 MG PO (02:55)
[2023-09-22 03:01] LABS: Troponin I < 0.012 ng/mL (0.000-0.034)
[2023-09-22] MEDS: SODIUM CHLORIDE 0.9% IV 1,000 ML 999 ML IV CONT (04:14)
== END 2023-09-22 06:12 | disposition home or self-care (01) ==
PROVIDERS: Emergency Provider Student in an Organized Health Care Education/Training Program; PCP Family Medicine
DX: M43.12 Spondylolisthesis, cervical region (principal); R55 Syncope and collapse; Z87.891 Personal history of nicotine dependence
CPT/HCPCS: 36415; 70450; 72125; 80053; 84484; 85025; 93005; 96360; 99284; A9270; J7030

== ENCOUNTER 2023-10-22 15:45 | Outpatient (CLI) | payer BC, SELFPAY ==
--- NOTE | ~2023-10-22 | MM_ITS ---
EXAMINATION: MM screening azul BI w logan HISTORY: Screening TECHNIQUE: Craniocaudal and mediolateral oblique 3-D tomosynthesis images were obtained and synthetic 2-D images were generated. CAD analysis was submitted and interpreted. COMPARISON: Comparison to multiple prior studies sequentially, with oldest reviewed study dated 04/14. BREAST PARENCHYMAL COMPOSITION: Not dense: There are scattered areas of fibroglandular density. FINDINGS: There is no evidence of suspicious mass, calcification, or architectural distortion to sugg est malignancy in either breast. There has been no suspicious interval change. IMPRESSION: 1. No mammographic evidence of malignancy. 2. Recommend routine screening mammography in one year. BI-RADS Category 1: Negative Reviewed, dictated and finalized at location B.
== END 2023-10-22 15:46 | disposition home or self-care (01) ==
LOC: ANHIMG 15:46
PROVIDERS: PCP Family Medicine; Visit Provider Family Medicine
DX: Z12.31 Encounter for screening mammogram for malignant neoplasm of breast (principal)
CPT/HCPCS: 77063; 77067

== ENCOUNTER 2024-03-20 10:36 | Emergency (ER) | payer BC, SELFPAY ==
[2024-03-20 10:40] VITALS: BP 104/75; PULSE 80; RESP 16; TEMP 37; O2SAT 100
--- NOTE | 2024-03-20 11:17 | ED.URI ---
HPI - URI/Sore Throat General Chief Complaint: Upper Respiratory Infection Stated Complaint: Bodyaches/Sinus Time Seen by Provider: 03/20/24 11:17 Source: patient Mode of arrival: ambulatory Limitations: no limitations History of Present Illness HPI Narrative: 58 y/o female presented for c/o cough x1 week. Endorses nasal congestion and bilateral ear pressure with increase in vertigo. Says symptoms are worsening the past few days, and had sweats and chills last night. Pt tested negative for covid 3 days ago. Taking mucinex. Related Data Allergies Allergy/AdvReac Type Severity Reaction Status Date / Time nitrofurantoin AdvReac Intermediate Fainting Verified 03/20/24 10:39 Review of Systems Review of Systems: CONSTITUTIONAL: Denies body aches, reports fever, chills, sweats. EYES: Denies visual changes, redness, or discharge. ENT: reports rhinorrhea, congestion, denies sore throat, or otalgia. CARDIOVASCULAR: Denies chest pain, palpitations, or edema. RESPIRATORY: Reports cough, denies sob, wheezing. GASTROINTESTINAL: Denies abdominal pain, nausea, vomiting, or diarrhea. SKIN: Denies rash MUSCULOSKELETAL: Denies back pain, joint pain, or myalgia. NEUROLOGIC: Denies headache, numbness, tingling, or weakness. All systems reviewed & are unremarkable except as noted in HPI and below PMFSH Past Medical History Medical History Vertigo Hepatitis C antibody positive in blood Fatty liver IFG (impaired fasting glucose) Menieres disease Surgical History Surgical History History of detached retina repair September 18, 2023 ([facility]) [place] teeth removed S/P dilation and curettage History of hysteroscopy Family History Family History Father Family history of elevated blood lipids Family history of diabetes mellitus in first degree relative Hypertension Diabetes mellitus Mother Family history of elevated blood lipids Hypertension Family history of diabetes mellitus in first degree relative Diabetes mellitus Sibling Family history of diabetes mellitus in first degree relative Hypertension Family history of elevated blood lipids Diabetes mellitus Grandparent Diabetes mellitus Social History Social History Smoking status: Former smoker Tobacco type: cigarettes Second hand tobacco smoke exposure: No Smoking end date: 03/30/01 Alcohol intake: never Alcohol use details: social drinker Substance use: never Substance use type: does not use Living arrangements: with family Occupation/Education: occupation Gender identity (if verbalized by the patient): Female Sexual Orientation (if Verbalized by the Patient): Straight or Heterosexual Spiritual care concerns: No Comments At time of signature, I have reviewed and agree with nursing past medical, surgical, social and family history unless otherwise noted. Please see nursing chart for further information. There is no relevant family history pertinent to the presenting complaint Exam Narrative: GENERAL: mildly ill-appearing, in no acute distress. EYES: EOMI. No redness or drainage. Conjunctivae normal. ENT: Mucous membranes pink and moist. No rhinorrhea. TMs normal bilaterally. Throat normal. Uvula midline. NECK: Normal AROM. Supple. CHEST: No respiratory distress. Lungs clear to all nunn. HEART: Regular rate and rhythm. No murmur appreciated. SKIN: Warm, dry, no rash. Capillary refill normal. Normal skin turgor. NEURO: Alert and oriented x3. Gait steady. PSYCH: Normal affect. Course Course Emergency Course: Patient is aware of diagnosis, understands and agrees to treatment plan. Anticipatory guidance given. Patient agrees to follow-up as directed and is aware of reasons to seek care at the emergency department. Portions of this record may have been created with voice recognition software Level of Care: Express Care Visit Vital Signs Vital signs: Vital Signs Temperature 98.6 F 03/20/24 10:40 Pulse Rate 80 03/20/24 10:40 Respiratory Rate 16 03/20/24 10:40 Blood Pressure 104/75 03/20/24 10:40 Pulse Oximetry 100 03/20/24 10:40 Oxygen Delivery Room Air 03/20/24 10:40 Temperature 98.6 F 03/20/24 10:40 Pulse Rate 80 03/20/24 10:40 Respiratory Rate 16 03/20/24 10:40 Blood Pressure 104/75 03/20/24 10:40 Pulse Oximetry 100 03/20/24 10:40 Oxygen Delivery Room Air 03/20/24 10:40 MDM - URI/Sore Throat MDM Narrative Medical decision making narrative: Discussed physical exam findings. Advised supportive measures and signs/symptoms to go to the ER. Pt is appropriate for outpt treatment and f/u. Differential Diagnosis Differential diagnosis: Likely upper respiratory infection, otitis media, sinusitis, viral infection and bronchitis Discharge Plan Discharge Clinical Impression: Upper respiratory infection Patient Disposition: Home, Self-Care Condition: Stable Instructions: Antibiotic Form, Upper Respiratory Infection (ED) Additional Instructions: flu and COVID negative. Recommend Flonase spray and Zyrtec (or Claritin/Jenny) over the counter Cough syrup may cause drowsiness; avoid driving or take it at night time. Tylenol 1000mg every 8 hours as needed for pain Symptomatic treatment includes: rest, fluids, and increase humidity of the air at home. Follow up with your primary care provider in 1 week. Go to the ER for worsening symptoms or concerns. Patient Language: Turkish Prescriptions: New prednisone 20 mg tablet 40 mg PO DAILY 4 Days Qty: 8 0RF amoxicillin-pot clavulanate 875-125 mg tablet 1 tablet PO Q12H 7 Days Qty: 14 0RF No Action venlafaxine 150 mg capsule,extended release 24hr 150 mg PO DAILY Qty: 90 2RF Follow-up/Referrals: Kj Blankenship MD [Primary Care Provider] -
[2024-03-20 11:20] LABS: EDCOVIDSCREEN Negative (Negative); EDINFLUASCREEN Negative (Negative); EDINFLUBSCREEN Negative (Negative)
== END 2024-03-20 11:30 | disposition home or self-care (01) ==
PROVIDERS: Emergency Provider Nurse Practitioner Family; PCP Family Medicine
DX: J06.9 Acute upper respiratory infection, unspecified (principal); Z20.822 Contact with and (suspected) exposure to COVID-19; Z87.891 Personal history of nicotine dependence; K76.0 Fatty (change of) liver, not elsewhere classified
CPT/HCPCS: 87426; 87804; 99213; G0463

== ENCOUNTER 2024-12-06 09:33 | Outpatient (CLI) | payer BC, SELFPAY ==
--- OUTSIDE RECORDS SUMMARY | 2000-05-22 19:00 | XMS_ITS | Continuity of Care Document ---
Author Organization [facility] Address [id number] [place] [address] [address] [place] [address] Phone Care Team Providers Care Management Lead Name Role Phone Rg OD, Rahul Unavailable Unavailable Advance Directives Directive Yes / No Effective Date File Name No Information Encounters Encounter Description Practice Location Reason(s) For Visit Diagnoses Date Provider Providers Copied on Encounter [facility], [address], [place], [place], [id number], [place] tel:[phone] [facility] No Information 4-200 1 Rg OD Rahul. [address] , [address], [place], [address], [place]. tel:[phone] Family History Family Member Type Diagnosis Age At Onset No Information Payers Payer name Insurance type Covered democrat ID Authoriza tion(s) No Information Social History [...]
[2024-12-06 10:15] LABS: Hematocrit 40.9 % (37.0-47.0); Hemoglobin 13.5 g/dL (12.0-15.0); Immature Granulocyte Percent A 0.2 % (0-0.5); Lymphocytes Absolute Auto 2.32 K/mm3 (0.9-3.2); Mean Corpuscular HGB Conc 33.0 g/dl (32-36); Mean Corpuscular Hemoglobin 29.3 pg (26-34); Mean Corpuscular Volume 88.9 fl (80-100); Nucleated Red Blood Cells Absolute Auto 0.000 K/mm3 (0.0-0.012); Nucleated Red Blood Cells Perc 0.0 % (0.0-0.2); Platelet Count Result 227 k/mm3 (150-375); Red Blood Count 4.60 M/mm3 (4.2-5.4); White Blood Count 4.8 K/mm3 (4.5-10.0)
[2024-12-06 10:24] LABS: Hemoglobin A1C 6.3 % (<5.7)
[2024-12-06 10:36] LABS: Alanine Aminotransferase 40 U/L (6-35); Albumin Level 4.1 g/dL (3.5-5.1); Alkaline Phosphatase 119 U/L (38-126); Anion Gap 7 mmol/L (4-12); Aspartate Amino Transferase 32 U/L (14-36); Bilirubin,Total 0.5 mg/dL (0.2-1.3); Blood Urea Nitrogen 14 mg/dL (7-17); Calcium 8.7 mg/dL (8.4-10.2); Carbon Dioxide 26 mmol/L (22-30); Chloride 103 mmol/L (98-107); Cholesterol 214 mg/dL (0-200); Estimated Glomerular Filt Rate > 60; Glucose 132 mg/dL (65-110); HDL Direct 53 mg/dL; Potassium 4.2 mmol/L (3.4-5.0); Sodium 136 mmol/L (137-145); Total Protein 7.3 g/dL (6.3-8.2); Triglycerides 217 mg/dL (<150)
--- OUTSIDE RECORDS SUMMARY | 2024-12-06 10:37 | XMS_ITS | Clinical Summary ---
Author Organization [facility] Address [address] [place] [id number] Care Team Providers Care Community Services Officer Name Role Phone Kj Blankenship MD Primary Care Provider Allergies No known active allergies Medications hydroCHLOROthia zide (HYDRODIURIL) 12.5 mg tabletIndicatio ns:Edema,ear fluid build up Take 12.5 mg by mouth every morning 2 09/20/2018 Active POTASSIUM CHLORIDE ER 10 mEq CR capsuleIndicati ons:hypokalemia prevention Take 10 mEq by mouth every morning 2 09/20/2018 Active venlafaxine XR (EFFEXOR-XR) 150 mg 24 hr capsuleIndicati ons:Anxiety with Depression,Gene ralized Anxiety Disorder Take 150 mg by mouth every morning 11/15/2018 Active LORazepam (ATIVAN) 0.5 mg tablet Take 0.5 mg by mouth every 6 (six) hours as needed for anxiety 10/22/2020 Active multivitamin capsuleIndicati ons:Vitamin Deficiency Prevention Take 1 capsule by mouth every morning Active ondansetron (ZOFRAN) 4 mg tablet Take 1 tablet (4 mg total) by mouth every 8 (eight) hours as needed for nausea or vomiting 20 tablet 05/08/2023 Active Active Problems Problem Noted Date Diagnosed Date Dermatochalasis of both upper eyelids 08/23/2021 Assessment & Plan (09/23/2021 2:02 PM CDT): DC with some frontalis recruit on exam right > left Doing well Assessment & Plan (08/23/2021 9:22 AM CDT): Reports she is affected by dim lighting due to eyelids and needing to overwork frontalis, and would like ptosis evaluation and visual field (VF) testing Pseudophakia of both eyes 04/12/2021 Assessment & Plan (06/24/2023 9:11 AM CDT): -s/p YAG cap OD 05/21/[address] Saha -doing well; pt happy with vision -ed pt no residual PCO causing blur; may be more related to OSD given h/o LASIK -recommend PFATs -follow with local ECP; here prn Assessment & Plan (05/21/2023 10:16 AM PROGRAM CLINICIAN): PCO OD Plan for YAG OD Follow with Dr. Hanson and then PRN there after Assessment & Plan (09/23/2021 2:03 PM CDT): Doing well Off all steroids and no cell on exam Pleased with vision Denies concerns Assessment & Plan (08/23/2021 9:19 AM CDT): POM#2 s/p CEIOL left eye (OS) - H/o myopic LASIK vs photorefractive keratectomy (PRK) ou - no history of glaucoma - quiet today - OK to taper prednisolone to once daily, then every other day for 1 week, then stop - RTC in 1 mo for iop check off steroid - pt does not need mrx and is happy with readers Assessment & Plan (07/15/2021 1:48 PM CDT): POM#1 s/p CEIOL OS - doing well without concerns - some pressure - still with cell - plan for increase cell to BID OS - keep BID for 2 weeks then taper to daily for 1 week - follow 4-5 weeks Assessment & Plan (06/26/2021 1:54 PM CDT): POD1 Extraction Cataract - Phacoemulsification And Lens Implant - Left Postoperative instructions were given. The patient is to use: ofloxacin QID X 1 week Prednisolone Acetate 1% QID Patient is to wear the shield at bedtime X 1 week. Signs, symptoms of retinal detachment, tear, hole, and endophthalmitis were reviewed and the patient is to call immediately for concerns. We discussed that things should improve until they stabilize. Should there be any worsening of pain, vision, or redness the patient is to call. Followup 1 week or sooner for concerns. 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 Sensorineural hearing loss, asymmetrical 019 Immunizations Immunization Administration Dates Next Due Influenza, Quadrivalent, Spl it, Preservative Free, Intramuscular 02/25/2020 Pfizer SARS-CoV-2 Monovalent Vaccination (12+ Yrs) PURPLE 05/16/2020,04/25/2020 ZOSTER Recombinant 11/24/2020 Surgical History Surgery Date Site/Laterality Comments LASIK 03/30/2010 - 03/29/2011 Bilateral COLONOSCOPY 03/30/2020 - 03/29/2021 CATARACT EXTRACTION 02/26/2021 Right CATARACT EXTRACTION 06/25/2021 Left Medical History Medical History Date Comments Motion sickness Family History Medical History Relation Name Comments Diabetes Father Diabetes Mother Heart disease Mother Anesthesia problems Neg Hx Relation Name Status Comments Father Mother Social History Tobacco Use Types Packs/Day Years Used Date Smoking Tobacco: Never Smokeless Tobacco: Never Alcohol Use Standard Drinks/Week Comments Never 0 (1 standard drink = 0.6 oz pur e alcohol) AUDIT-C Answer Date Recorded Q1: How often do you have a drink containing alc ohol? 2-4 times a month 06/17/2021 Q2: How many drinks containi ng alcohol do you have on a typical day when you are drinking? 1 or 2 06/17/2021 Q3: How often do you have si x or more drinks on one occasion? Less than monthly 06/17/2021 Exercise Vital Sign Answer Date Recorde d Days of Exercise per Week 3 days 2018 Minutes of Exercise per Session 60 min 12/06/2018 Comments No Sex and Gender Information Value Date Recorded Sex Assigned at Not on file Legal Sex Female 4:53 AM PROGRAM CLINICIAN Gender Identity Not on file Sexual Orientation Not on file Obstetrics History Para Term AB IAB SAB Ectopic Multiple Livin g Live Births 3 2 2 1 1 2 2 Date Outcome GA Total Labor Labor//3rd Weight Sex Type Anes PTL [place] A1 A5 Name Clin 1998 Term M Vag-S pont Living 2000 SAB U SAB 2001 Term M Vag-S pont Living Last Filed Vital Signs Vital Sign Reading Time Taken Comments Blood Pressure 99/69 06/25/2021 12:20 PM CDT Pulse 65 06/25/2021 12:20 PM CDT Temperature 36 C (96.8 F) 06/25/2021 12:10 PM CDT Respiratory Rate 16 06/25/2021 12:10 PM CDT Oxygen Saturation 94% 06/25/2021 12:20 PM CDT Inhaled Oxygen Concentration - - Weight 77.1 kg (170 lb) 06/25/2021 10:54 AM CDT Height 165.1 cm (5' 5) 06/25/2021 10:54 AM CDT Body Mass Index 28.29 06/25/2021 10:54 AM CDT Plan of Treatment Health Maintenance Due Date Last Done Comments Breast Cancer Screening-Mammogram 1965 Colon Cancer Screening-Colonoscopy 1965 Depression Screening 1965 Hepatitis C Screening 1965 DTaP/Tdap/Td Vaccine (1 - Tdap) 12/30/1974 Hepatitis B Screening 12/30/1981 Cervical Cancer Screening 03/30/2017 03/30/2016 Regular Well Visit/Exam 18-64 12/07/2019 12/06/2018 Covid-19 Vaccine (2023-2 5 season) 2023 02/07/2021, 05/16/2020, 04/25/2020 Influenza Vaccine (#1) 2024 02/25/2020 Zoster Vaccine Completed 01/29/2021, 11/24/2020 Pneumococcal vaccine <65 Aged Out No longer eligible based on patient's age to complete this topic Medical Devices Implanted Type Area Muck Boss Device Identifier Shelf Expiration Date Model / Serial / Lot [employer] [id number] - [id number] - [id number] Implanted:Qty: 1 on 02/26/2021 by Hetal Saha MD at [facility] Advanced Medicine Lens Right: Lens [employer] [id number] 09/27/2023 [id number] / [id number] / [employer] Lens Iol Posterior Biconvex Optic Single Piece Envista 6.0x12.5 +18.0d Hydrophobic Acrylic [id number] - [id number] - [id number] Implanted:Qty: 1 on 06/25/2021 by Hetal Saha MD at [facility] Advanced Medicine Lens Left: Eye [employer] 07/28/2023 [id number] / [id number] / [id number] Procedures Procedure Name Priority Date/Time Associated Diagnosis Comments PAP SMEAR WITH HPV Routine 03/30/2016 from Last 3 Months or Most Recently Relevant to Health Maintenance Results * PAP SMEAR WITH HPV (03/30/2016) Pap smear Normal Historical Provider HEALTH MAINTENANCE Final Result from Last 3 Months or Most Recently Relevant to Health Maintenance [place] [address] [employer] [facility] [place] [address] [facility] Member Subscriber Plan / Payer ( fective 2018-Present) Name:Elmira Coronadonda Eliecer Relation to Subscriber:Spouse Name:KAREN CORONADO Date of :1961 (Home) Address: [address] [place] [address] [place] [address] Payer ID:[id number] (NAIC) Group ID:[id number] Type:BC ALLIANCE Address: [address] [place] [id number] Care Teams Community Services Officer Relationship Specialty Start Date End Date Kj Blankenship MD [address] [facility] [address] [place] [address] PCP - General Family Medicine 07/07/18
== END 2024-12-06 09:34 | disposition home or self-care (01) ==
LOC: ANHLAB 09:33
PROVIDERS: PCP Family Medicine; Visit Provider Student in an Organized Health Care Education/Training Program
DX: E78.5 Hyperlipidemia, unspecified (principal); R73.01 Impaired fasting glucose
CPT/HCPCS: 36415; 80053; 80061; 83036; 85025

== ENCOUNTER 2024-12-22 13:07 | Outpatient (CLI) | payer BC, SELFPAY ==
--- OUTSIDE RECORDS SUMMARY | 2000-05-22 19:00 | XMS_ITS | Continuity of Care Document ---
Author Organization [facility] Address [id number] [place] [address] [address] [place] [address] Phone Care Team Providers Care Pocket Setter Lockstitch Name Role Phone Rg OD, Rahul Unavailable Unavailable Advance Directives Directive Yes / No Effective Date File Name No Information Encounters Encounter Description Practice Location Reason(s) For Visit Diagnoses Date Provider Providers Copied on Encounter [facility], [address], [place], [place], [id number], [place] tel:[phone] [facility] No Information 4-200 1 Rg OD Rahul. [address] , [address], [place], [address], [place]. tel:[phone] Family History Family Member Type Diagnosis Age At Onset No Information Payers Payer name Insurance type Covered libertarian ID Authoriza tion(s) No Information Social History Type Description Quantity Date Captured Comments Sex Female Smoking Status No Information Chief Complaint And Reason For Visit No Information Reason For Referral Reason For Referral No Information History Of Present Illness Encounter Date Complaint History Of Prese nt Illness No Information Functional Status Date Functional Assessmen t No Information Instructions Date Instruction Additional Infor mation No Information Assessments Type Assessment Date No Information Patient Care Teams Name Effective Dates (start - stop) Status Members No Information
--- NOTE | ~2024-12-22 | MM_ITS ---
EXAMINATION: MM screening azul BI w logan HISTORY: Screening TECHNIQUE: Craniocaudal and mediolateral oblique 3-D tomosynthesis images were obtained and synthetic 2-D images were generated. CAD analysis was submitted and interpreted. COMPARISON: 07/02/2022 BREAST PARENCHYMAL COMPOSITION: There are scattered areas of fibroglandular density. FINDINGS: There is no evidence of suspicious mass, calcification, or architectural distortion to suggest malignancy. There has been no suspicious interval change. IMPRESSION: 1. No mammographic evidence of malignancy. Recommend routine screening mammography in one year. BI-RADS Category 2: Benign finding(s) Reviewed, dictated and finalized at location Q. IMPRESSION: 1. No mammographic evidence of malignancy. Recommend routine screening mammogra phy in one year. BI-RADS Category 2: Benign finding(s)
--- OUTSIDE RECORDS SUMMARY | 2024-12-22 15:58 | XMS_ITS | Clinical Summary ---
Author Organization [facility] Address [address] [place] [id number] Care Team Providers Care Foreign Exchange Student Coordinator Name Role Phone Kj Blankenship MD Primary [...] prn Assessment & Plan (05/21/2023 10:16 AM CLINICAL SECRETARY): PCO OD Plan for YAG OD Follow [...] eyes Assessment & Plan (04/10/2021 4:03 PM CLINICAL SECRETARY): H/o LASIK Refractive calcs Assessment & Plan [...] on file Legal Sex Female 4:53 AM CLINICAL SECRETARY Gender Identity Not on file Sexual Orientation [...] Well Visit/Exam 18-64 12/07/2019 12/06/2018 Covid-19 Vaccine (2024-2 6 season) 2024 02/07/2021, 05/16/2020, 04/25/2020 Influenza Vaccine (#1) 2024 02/25/2020 Zoster Vaccine Completed 01/29/2021, 11/24/2020 Pneumococcal vaccine <65 Aged Out No longer eligible based on patient's age to complete this topic Medical Devices Implanted Type Area Angle Furnaceman Device Identifier Shelf Expiration Date Model / Serial / Lot [employer] [id number] - [id number] - [id number] Implanted:Qty: 1 on 02/26/2021 by Hetal Saha MD at [facility] Advanced Medicine Lens Right: Lens [employer] [id number] 09/27/2023 [id number] / [id number] / [employer] Lens Iol Posterior Biconvex Optic Single Piece Envista 6.0x12.5 +18.0d Hydrophobic Acrylic [id number] - [id number] - [id number] Implanted:Qty: 1 on 06/25/2021 by Hetal Saha MD at [facility] Advanced Medicine Lens Left: Eye [employer] 07/28/2023 [id number] / [id number] / [id number] Procedures Procedure Name Priority Date/Time Associated Diagnosis Comments PAP SMEAR WITH HPV Routine 03/30/2016 from Last 3 Months or Most Recently Relevant to Health Maintenance Results * PAP SMEAR WITH HPV (03/30/2016) Pap smear Normal Historical Provider HEALTH MAINTENANCE Final Result from Last 3 Months or Most Recently Relevant to Health [place] [address] [employer] [facility] [address] [facility] Member Subscriber Plan / Payer ( fective 2018-Present) Name:Elmira Coronadonda Eliecer Relation to Subscriber:Spouse Name:KAREN CORONADO Date of :1961 (Home) Address: [address] [place] [address] [place] [address] Payer ID:[id number] (NAIC) Group ID:[id number] Type:BC ALLIANCE Address: [address] [place] [id number] Care Teams Foreign Exchange Student Coordinator Relationship Specialty Start Date End Date Kj Blankenship MD [address] [place] [address] PCP - General Family Medicine 07/07/18
== END 2024-12-22 13:08 | disposition home or self-care (01) ==
PROVIDERS: PCP Family Medicine; Visit Provider Obstetrics & Gynecology
DX: Z12.31 Encounter for screening mammogram for malignant neoplasm of breast (principal)
CPT/HCPCS: 77063; 77067